=== PATIENT | male | born 1950 | race Caucasian/White ===

== ENCOUNTER 2021-07-12 11:54 | Inpatient (IN) ==
[2021-07-12 12:54] LABS: Basophils # 0.1 K/mcL (0.0-0.2); Basophils % 0.8 %; Eosinophils # 0.3 K/mcL (0.0-0.6); Eosinophils % 2.7 %; Hematocrit 43.2 % (37.5-50.1); Hemoglobin 14.9 g/dL (12.9-16.9); Immature Granulocytes % 0.2 % (0-4); Lymphocytes # 1.4 K/mcL (0.6-4.6); Lymphocytes % 15.4 %; Mean Corpuscular HGB Conc 34.5 g/dL (31.6-35.5); Mean Corpuscular Hemoglobin 30.1 pg (28.0-33.3); Mean Corpuscular Volume 87.3 fL (83.0-100.0); Mean Platelet Volume 10.6 fL (9.4-12.4); Monocytes # 0.8 K/mcL (0.0-1.3); Neutrophils # 6.8 K/mcL (1.6-8.9); Platelet Count 214 K/mcL (140-400); Red Blood Count 4.95 M/mcL (4.19-5.50); Segmented Neutrophils % 72.9 %; White Blood Count 9.3 K/mcL (4.3-11.1)
[2021-07-12 13:16] LABS: BUN/Creatinine Ratio 22 (6-26); Blood Urea Nitrogen 21 mg/dL (8-23); Calcium 9.5 mg/dL (8.6-10.3); Carbon Dioxide 27 mEq/L (23-29); Chloride 103 mEq/L (98-107); Glucose 142 mg/dL (70-105); Osmolality,Calculated 293 (280-300); Potassium 3.9 mEq/L (3.5-5.1); Sodium 139 mEq/L (136-145); eGFR For African Americans > 60 (> 60); eGFR For Non-African Americans > 60 (> 60)
[2021-07-12 13:17] LABS: Troponin I < 0.03 ng/mL (< 0.04)
[2021-07-12 14:09] LABS: INR 1.1; Prothrombin Time 12.3 Seconds (9.4-12.1)
[2021-07-12 14:12] LABS: Activated Partial Thrombo Time 32.1 Seconds (26.0-36.0); Alanine Aminotransferase 22 Units/L (7-52); Albumin 3.9 g/dL (3.5-5.7); Albumin/Globulin Ratio 1.3 (1.1-2.2); Alkaline Phosphatase 60 Units/L (34-104); Aspartate Amino Transferase 20 Units/L (13-39); Bilirubin,Direct 0.1 mg/dL (0.0-0.2); Bilirubin,Indirect 0.4 mg/dL (0.0-1.0); Bilirubin,Total 0.5 mg/dL (0.3-1.0); Lipase 16 Units/L (11-82); Total Protein 6.9 g/dL (6.4-8.9)
[2021-07-12 16:00] LABS: Influenza A PCR Negative (Negative); Influenza B PCR Negative (Negative); Resp. Syncytial Virus PCR Negative (Negative)
[2021-07-12 16:01] LABS: SARS-CoV-2 by PCR (In House) Negative (Negative)
[2021-07-12] MEDS ORDERED: Ondansetron 4 MG/2 ML VIAL IVP PRN (16:43)
[2021-07-12] MEDS ORDERED: Naloxone 0.4 MG/ML INJ IVP PRN (16:43)
[2021-07-12] MEDS ORDERED: *HR* Dextrose 50 % in Water (Syg) 50 ML SYRINGE IVP PRN (16:44)
[2021-07-12] MEDS ORDERED: D5% in Water 1,000 ML IVC PRN (16:44)
[2021-07-12] MEDS ORDERED: Dextrose Gel 15 GM/37.5 ML TUBE PO PRN ×2 (16:44)
[2021-07-12] MEDS ORDERED: Nitroglycerin 0.4 MG TAB.SUBL SL PRN (16:45)
[2021-07-12] MEDS: *HR* Heparin 5,000 UNIT/ML VIAL SQ SCH (18:41)
[2021-07-12 19:48] LABS: Chol/HDL Ratio 2.7 (0-4.9)
[2021-07-12] MEDS: atenoloL 50 MG TABLET PO SCH (21:16)
[2021-07-12] MEDS: Insulin DETEMIR 100 UNIT/ML X5UNITS SUBQ SCH (21:26)
[2021-07-13] MEDS: *HR* Heparin 5,000 UNIT/ML VIAL SQ SCH (05:29)
[2021-07-13] MEDS ORDERED: Regadenoson 0.4 MG/5 ML SYRINGE IVP ONE (05:58)
[2021-07-13] MEDS ORDERED: Furosemide 20 MG TABLET PO PRN (07:22)
[2021-07-13] MEDS: Insulin LISPRO 300 UNITS/3 ML VIAL SUBQ SCH ×3 (08:31→18:08)
[2021-07-13] MEDS: Lisinopril-HCTZ 20-12.5mg TABLET PO SCH (08:38)
[2021-07-13] MEDS: Cholecalciferol (D-3) 1,000 UNIT (25MCG) TABLET PO SCH (08:38)
[2021-07-13] MEDS: atenoloL 50 MG TABLET PO SCH (08:38)
[2021-07-13] MEDS ORDERED: 0.9 % Sodium Chloride 1,000 ML IVC SCH (10:00)
[2021-07-13] MEDS ORDERED: Perflutren Lipid Microsphere 1.3 ML in 0.9 % Sodium Chloride 8.7 ML IVP PRN (10:07)
[2021-07-13] MEDS ORDERED: *HR* FentaNYL (PF) 100 MCG/2 ML VIAL ONE (15:02)
[2021-07-13] MEDS ORDERED: 0.9 % Sodium Chloride 2,000 ML ONE (15:02)
[2021-07-13] MEDS ORDERED: Heparin 1,000 UNITS/500 mL 500 ML ONE (15:02)
[2021-07-13] MEDS ORDERED: *HR* Midazolam HCl 2 MG/2 ML VIAL ONE (15:02)
[2021-07-13] MEDS ORDERED: ISOVUE-370 200 ML INFUS..BTL ONE (15:02)
[2021-07-13] MEDS ORDERED: *HR* Heparin 10,000 UNIT/10 ML VIAL ONE (15:02)
[2021-07-13] MEDS ORDERED: Nitroglycerin 1,000 MCG/5 ML VIAL IV ONE (15:03)
[2021-07-13] MEDS: 0.9 % Sodium Chloride 1,000 ML IVC SCH ×2 (17:04→23:54)
[2021-07-13 18:06] LABS: Estimated Average Glucose 229 mg/dl; Hemoglobin A1C 9.6 %
[2021-07-13] MEDS: Chlorhexidine Rinse 15 ML MOUTHWASH MM SCH (20:55)
[2021-07-13] MEDS: Insulin DETEMIR 100 UNIT/ML X5UNITS SUBQ SCH (20:56)
[2021-07-13] MEDS: Aspirin Enteric Coated 81 MG Tablet PO SCH (20:56)
[2021-07-13] MEDS ORDERED: ATENOLOL 100 MG PO SCH (21:00)
[2021-07-14] MEDS: CeFAZolin Syr 2,000MG/20 ML 2,000 MG/20 ML SYRINGE IVPB ONE ×2 (05:16→11:30)
[2021-07-14] MEDS ORDERED: Papaverine 60 MG/2 ML VIAL IVP ONE (06:46)
[2021-07-14] MEDS ORDERED: NiCARdipine 2.5 MG/10 ML Syringe IVPB ONE (06:49)
[2021-07-14] MEDS ORDERED: *HR* Vasopressin 20 UNIT/ML VIAL ONE (06:49)
[2021-07-14] MEDS: Insulin LISPRO 300 UNITS/3 ML VIAL SUBQ SCH (07:35)
[2021-07-14] MEDS: Chlorhexidine Rinse 15 ML MOUTHWASH MM SCH ×2 (07:40→20:00)
[2021-07-14] MEDS: atenoloL 50 MG TABLET PO SCH (07:40)
[2021-07-14] MEDS: Cholecalciferol (D-3) 1,000 UNIT (25MCG) TABLET PO SCH (07:40)
[2021-07-14] MEDS: Lisinopril-HCTZ 20-12.5mg TABLET PO SCH (07:40)
[2021-07-14] MEDS ORDERED: Norepinephrine 4 MG in 0.9 % Sodium Chloride 250 ML IVC PRN (07:45)
[2021-07-14] MEDS ORDERED: Heparin 15,000 UNIT in 0.9 % Sodium Chloride 500 ML IV ONE (07:45)
[2021-07-14] MEDS ORDERED: Dextrose 50 % in Water (Vial) 30 ML, Sodium Bicarbonate 20 MEQ, Potassium Chloride 15 M... TH ONE (07:45)
[2021-07-14] MEDS ORDERED: Dextrose 50 % in Water (Vial) 30 ML, Sodium Bicarbonate 20 MEQ, Lidocaine 1% 5 ML, Insu... TH ONE ×3 (07:45)
[2021-07-14] MEDS ORDERED: *HR* FentaNYL (PF) 1,000 MCG/20 ML VIAL ONE ×2 (10:11)
[2021-07-14] MEDS ORDERED: *HR* Propofol 200 MG/20 ML VIAL IVP ONE (10:11)
[2021-07-14] MEDS ORDERED: *HR* Midazolam HCl 5 MG/5 ML VIAL IVP ONE (10:11)
[2021-07-14] MEDS ORDERED: *HR* Rocuronium Bromide 50 MG/5 ML VIAL ONE ×2 (10:12→12:18)
[2021-07-14] MEDS ORDERED: *HR* Magnesium Sulfate 1 GM/2 ML VIAL ONE (10:13)
[2021-07-14] MEDS ORDERED: Lidocaine 2% Syringe 100 MG/5 ML ONE (10:13)
[2021-07-14] MEDS ORDERED: Famotidine 20 MG/2 ML VIAL ONE (10:13)
[2021-07-14] MEDS ORDERED: Tranexamic Acid 1,000 MG/10 ML VIAL ONE (10:13)
[2021-07-14 11:32] LABS: ABG Base Excess -2 mEq/L (-2 to 3); ABG Chloride 104 mEq/L (98-107); ABG Glucose 160 mg/dL (60-95); ABG HCO3 23 mEq/L (21-27); ABG Ionized Calcium 1.21 mmol/L (1.15-1.35); ABG Oxygen Saturation 100 % (95-98); ABG PCO2 39 mmHg (35-45); ABG PH 7.37 pH Units (7.32-7.45); ABG PO2 420 mmHg (85-104); ABG TCO2 24 mEq/L (20-26)
[2021-07-14 12:41] LABS: ABG Base Excess 1 mEq/L (-2 to 3); ABG Chloride 106 mEq/L (98-107); ABG Glucose 151 mg/dL (60-95); ABG HCO3 24 mEq/L (21-27); ABG Ionized Calcium 1.14 mmol/L (1.15-1.35); ABG Oxygen Saturation 100 % (95-98); ABG PCO2 34 mmHg (35-45); ABG PH 7.46 pH Units (7.32-7.45); ABG PO2 254 mmHg (85-104); ABG TCO2 25 mEq/L (20-26)
[2021-07-14 13:22] LABS: ABG Base Excess 3 mEq/L (-2 to 3); ABG Chloride 99 mEq/L (98-107); ABG Glucose 208 mg/dL (60-95); ABG HCO3 26 mEq/L (21-27); ABG Ionized Calcium 0.99 mmol/L (1.15-1.35); ABG Oxygen Saturation 100 % (95-98); ABG PCO2 33 mmHg (35-45); ABG PH 7.51 pH Units (7.32-7.45); ABG PO2 630 mmHg (85-104); ABG TCO2 27 mEq/L (20-26)
[2021-07-14 13:43] LABS: ABG Base Excess 4 mEq/L (-2 to 3); ABG Chloride 99 mEq/L (98-107); ABG Glucose 210 mg/dL (60-95); ABG HCO3 27 mEq/L (21-27); ABG Ionized Calcium 1.04 mmol/L (1.15-1.35); ABG Oxygen Saturation 100 % (95-98); ABG PCO2 35 mmHg (35-45); ABG PO2 625 mmHg (85-104); ABG TCO2 29 mEq/L (20-26)
[2021-07-14] MEDS ORDERED: Calcium Gluconate 1,000 MG/10 ML VIAL ONE (13:46)
[2021-07-14] MEDS ORDERED: Protamine Sulfate 250 MG/25 ML VIAL IVP ONE (13:46)
[2021-07-14] MEDS ORDERED: Albumin Human 5% 12.5 GM/250 ML IV.SOLN ONE (13:46)
[2021-07-14 14:11] LABS: ABG Base Excess 4 mEq/L (-2 to 3); ABG Chloride 101 mEq/L (98-107); ABG Glucose 166 mg/dL (60-95); ABG HCO3 27 mEq/L (21-27); ABG Ionized Calcium 1.05 mmol/L (1.15-1.35); ABG Oxygen Saturation 100 % (95-98); ABG PCO2 37 mmHg (35-45); ABG PH 7.48 pH Units (7.32-7.45); ABG PO2 583 mmHg (85-104); ABG TCO2 28 mEq/L (20-26)
[2021-07-14 14:42] LABS: ABG Base Excess -2 mEq/L (-2 to 3); ABG Chloride 107 mEq/L (98-107); ABG Glucose 123 mg/dL (60-95); ABG HCO3 21 mEq/L (21-27); ABG Ionized Calcium 1.04 mmol/L (1.15-1.35); ABG Oxygen Saturation 97 % (95-98); ABG PCO2 30 mmHg (35-45); ABG PH 7.46 pH Units (7.32-7.45); ABG PO2 84 mmHg (85-104); ABG TCO2 22 mEq/L (20-26)
[2021-07-14] MEDS ORDERED: Albumin Human 5% 50.0 GM/1,000 ML IV.SOLN ONE (14:58)
[2021-07-14] MEDS ORDERED: *HR* Dextrose 50 % in Water (Syg) 50 ML SYRINGE IVP PRN (15:00)
[2021-07-14] MEDS ORDERED: Sennosides 8.6 MG TABLET PO PRN (15:00)
[2021-07-14] MEDS ORDERED: Insulin Regular, Human 100 UNIT/ML IV PRN (15:00)
[2021-07-14] MEDS ORDERED: *HR* Promethazine 25 MG/ML VIAL IM PRN (15:00)
[2021-07-14] MEDS ORDERED: Naloxone 0.4 MG/ML INJ IVP PRN (15:00)
[2021-07-14] MEDS ORDERED: Potassium Chloride 40 MEQ/200 ML BAG IVPB PRN (15:00)
[2021-07-14] MEDS: Norepinephrine 4 MG/254 ML IV.SOLN IVC SCH ×2 (15:15→19:27)
[2021-07-14] MEDS: Albumin Human 5% 12.5 GM/250 ML IV.SOLN IVPB PRN (15:25)
[2021-07-14 15:38] LABS: ABG Base Excess 0 mEq/L (-2 to 3); ABG HCO3 25 mEq/L (21-27); ABG Oxygen Saturation 99 % (95-98); ABG PCO2 41 mmHg (35-45); ABG PO2 140 mmHg (85-104); ABG TCO2 26 mEq/L (20-26); Blood Gas Modality ASSIST CONTROL; Blood Gas VT 500 cc
[2021-07-14 15:48] LABS: Basophils % 0.3 %; Immature Granulocytes % 1.1 % (0-4)
[2021-07-14 15:50] LABS: Basophils # 0.1 K/mcL (0.0-0.2); Eosinophils # 0.2 K/mcL (0.0-0.6); Eosinophils % 0.7 %; Hematocrit 35.8 % (37.5-50.1); Hemoglobin 12.4 g/dL (12.9-16.9); Lymphocytes # 1.4 K/mcL (0.6-4.6); Lymphocytes % 5.3 %; Mean Corpuscular HGB Conc 34.6 g/dL (31.6-35.5); Mean Corpuscular Hemoglobin 30.4 pg (28.0-33.3); Mean Corpuscular Volume 87.7 fL (83.0-100.0); Mean Platelet Volume 10.5 fL (9.4-12.4); Monocytes # 1.5 K/mcL (0.0-1.3); Monocytes % 5.7 %; Neutrophils # 22.6 K/mcL (1.6-8.9); Platelet Count 170 K/mcL (140-400); Red Blood Count 4.08 M/mcL (4.19-5.50); Segmented Neutrophils % 86.9 %
[2021-07-14 15:56] LABS: INR 1.5; Prothrombin Time 16.5 Seconds (9.4-12.1)
[2021-07-14 15:58] LABS: Activated Partial Thrombo Time 27.5 Seconds (26.0-36.0)
[2021-07-14 16:03] LABS: BUN/Creatinine Ratio 15 (6-26); Blood Urea Nitrogen 13 mg/dL (8-23); Calcium 8.3 mg/dL (8.6-10.3); Carbon Dioxide 27 mEq/L (23-29); Chloride 106 mEq/L (98-107); Glucose 153 mg/dL (70-105); Magnesium 2.6 mg/dL (1.6-2.6); Osmolality,Calculated 289 (280-300); Potassium 3.8 mEq/L (3.5-5.1); Sodium 138 mEq/L (136-145); eGFR For African Americans > 60 (> 60); eGFR For Non-African Americans > 60 (> 60)
[2021-07-14] MEDS: *HR* FentaNYL (PF) 100 MCG/2 ML VIAL IVP PRN ×2 (16:15→20:12)
[2021-07-14 16:17] LABS: Platelet Estimate Normal (Normal)
[2021-07-14] MEDS: 0.9 % Sodium Chloride 1,000 ML IVC SCH (16:38)
[2021-07-14] MEDS: *HR* OxyCODONE/APAP 5/325 TABLET PO PRN ×2 (17:35→21:20)
[2021-07-14 18:07] LABS: Bilirubin,Urine Negative (Negative); Blood,Urine Negative (Negative); Clarity,Urine Clear (Clear); Color,Urine Light-Yellow (Yellow); Glucose,Urine (UA) Normal (Normal); Ketones,Urine Negative (Negative); Leukocyte Esterase,Urine Negative (Negative); Nitrite,Urine Negative (Negative); PH,Urine 6.5 pH Units (5.0-8.0); Protein,Urine Negative (Neg-Trace); Specific Gravity,Urine 1.024 (1.010-1.025); Urobilinogen,Urine Normal (Normal)
[2021-07-14] MEDS: CeFAZolin 2 GM/120 ML BAG IVPB SCH (19:25)
[2021-07-14] MEDS: niCARdipine 20 MG/200 ML MLS IVC SCH (19:25)
[2021-07-14] MEDS: Aspirin Enteric Coated 81 MG Tablet PO SCH (19:26)
[2021-07-14 19:32] LABS: ABG Base Excess -1 mEq/L (-2 to 3); ABG HCO3 25 mEq/L (21-27); ABG Oxygen Saturation 98 % (95-98); ABG PCO2 42 mmHg (35-45); ABG PH 7.38 pH Units (7.32-7.45); ABG PO2 106 mmHg (85-104); ABG TCO2 26 mEq/L (20-26); Blood Gas Modality CPAP/PS; Blood Gas Pressure Support 5 cm H2O
[2021-07-14 21:12] LABS: ABG Base Excess -2 mEq/L (-2 to 3); ABG HCO3 23 mEq/L (21-27); ABG Oxygen Saturation 96 % (95-98); ABG PCO2 40 mmHg (35-45); ABG PH 7.37 pH Units (7.32-7.45); ABG PO2 81 mmHg (85-104); ABG TCO2 25 mEq/L (20-26)
[2021-07-15] MEDS: *HR* FentaNYL (PF) 100 MCG/2 ML VIAL IVP PRN ×2 (00:02→04:27)
[2021-07-15] MEDS: niCARdipine 20 MG/200 ML MLS IVC SCH ×3 (01:01→19:18)
[2021-07-15] MEDS: *HR* OxyCODONE/APAP 5/325 TABLET PO PRN ×5 (01:14→20:54)
[2021-07-15] MEDS: CeFAZolin 2 GM/120 ML BAG IVPB SCH (02:00)
[2021-07-15 03:34] LABS: Basophils % 0.1 %; Hematocrit 32.8 % (37.5-50.1); Hemoglobin 11.3 g/dL (12.9-16.9); Immature Granulocytes % 0.4 % (0-4); Lymphocytes % 4.7 %; Mean Corpuscular HGB Conc 34.5 g/dL (31.6-35.5); Mean Corpuscular Hemoglobin 30.1 pg (28.0-33.3); Mean Corpuscular Volume 87.5 fL (83.0-100.0); Mean Platelet Volume 10.8 fL (9.4-12.4); Monocytes # 1.7 K/mcL (0.0-1.3); Monocytes % 8.1 %; Neutrophils # 17.6 K/mcL (1.6-8.9); Platelet Count 147 K/mcL (140-400); Red Blood Count 3.75 M/mcL (4.19-5.50); Red Cell Distribution Width 12.4 % (11.5-14.5); Segmented Neutrophils % 86.7 %; White Blood Count 20.3 K/mcL (4.3-11.1)
[2021-07-15 03:44] LABS: BUN/Creatinine Ratio 24 (6-26); Blood Urea Nitrogen 19 mg/dL (8-23); Calcium 8.3 mg/dL (8.6-10.3); Carbon Dioxide 23 mEq/L (23-29); Chloride 107 mEq/L (98-107); Glucose 166 mg/dL (70-105); Osmolality,Calculated 292 (280-300); Potassium 3.9 mEq/L (3.5-5.1); Sodium 138 mEq/L (136-145); eGFR For African Americans > 60 (> 60); eGFR For Non-African Americans > 60 (> 60)
[2021-07-15] MEDS: 0.9 % Sodium Chloride 1,000 ML IVC SCH (05:03)
[2021-07-15] MEDS: Norepinephrine 4 MG/254 ML IV.SOLN IVC SCH ×2 (05:04→19:18)
[2021-07-15] MEDS: Albumin Human 5% 12.5 GM/250 ML IV.SOLN IVPB PRN (06:42)
[2021-07-15] MEDS: Ondansetron 4 MG/2 ML VIAL IVP PRN ×2 (08:15→16:53)
[2021-07-15] MEDS: Cholecalciferol (D-3) 1,000 UNIT (25MCG) TABLET PO SCH (09:36)
[2021-07-15] MEDS: Pantoprazole 40 MG VIAL IVP SCH (09:42)
[2021-07-15] MEDS: Chlorhexidine Rinse 15 ML MOUTHWASH MM SCH ×2 (09:42→20:07)
[2021-07-15] MEDS ORDERED: Tranexamic Acid 1,000 MG/10 ML VIAL IR ONE (11:04)
[2021-07-15] MEDS ORDERED: *HR* Phenylephrine 10 MG/ML VIAL IVC ONE (11:04)
[2021-07-15] MEDS ORDERED: Lidocaine 2% Syringe 100 MG/5 ML IVP ONE (11:04)
[2021-07-15] MEDS ORDERED: Mannitol 25% vial 12.5 GM/50 ML VIAL IVPB ONE (11:04)
[2021-07-15] MEDS ORDERED: *HR* Magnesium Sulfate 2 GM/50 ML PIGGYBACK IVPB ONE (11:04)
[2021-07-15] MEDS ORDERED: *HR* Heparin 10,000 UNIT/10 ML VIAL IR ONE (11:04)
[2021-07-15] MEDS ORDERED: Albumin Human 25% 25 GM/100 ML IV.SOLN IVPB ONE (11:04)
[2021-07-15] MEDS ORDERED: Dextrose Gel 15 GM/37.5 ML TUBE PO PRN ×2 (14:39)
[2021-07-15] MEDS ORDERED: *HR* Dextrose 50 % in Water (Syg) 50 ML SYRINGE IVP PRN (14:39)
[2021-07-15] MEDS ORDERED: D5% in Water 1,000 ML IVC PRN (14:39)
[2021-07-15] MEDS: Aspirin Enteric Coated 81 MG Tablet PO SCH (20:09)
[2021-07-15] MEDS ORDERED: Insulin LISPRO 300 UNITS/3 ML VIAL SUBQ SCH (21:00)
[2021-07-15] MEDS: Acetaminophen 325 MG TABLET PO PRN (22:44)
[2021-07-16] MEDS: Norepinephrine 4 MG/254 ML IV.SOLN IVC SCH ×2 (00:15→07:49)
[2021-07-16] MEDS: niCARdipine 20 MG/200 ML MLS IVC SCH ×2 (00:16→10:14)
[2021-07-16] MEDS: *HR* OxyCODONE/APAP 5/325 TABLET PO PRN ×2 (00:30→04:10)
[2021-07-16 04:34] LABS: Basophils % 0.2 %; Eosinophils # 0.1 K/mcL (0.0-0.6); Eosinophils % 0.3 %; Hematocrit 31.2 % (37.5-50.1); Hemoglobin 10.4 g/dL (12.9-16.9); Immature Granulocytes % 0.5 % (0-4); Lymphocytes # 1.6 K/mcL (0.6-4.6); Lymphocytes % 8.9 %; Mean Corpuscular HGB Conc 33.3 g/dL (31.6-35.5); Mean Corpuscular Hemoglobin 30.1 pg (28.0-33.3); Mean Corpuscular Volume 90.2 fL (83.0-100.0); Mean Platelet Volume 11.2 fL (9.4-12.4); Monocytes # 2.5 K/mcL (0.0-1.3); Monocytes % 13.6 %; Neutrophils # 14.1 K/mcL (1.6-8.9); Platelet Count 155 K/mcL (140-400); Red Blood Count 3.46 M/mcL (4.19-5.50); Red Cell Distribution Width 12.9 % (11.5-14.5); Segmented Neutrophils % 76.5 %; White Blood Count 18.4 K/mcL (4.3-11.1)
[2021-07-16 04:49] LABS: BUN/Creatinine Ratio 24 (6-26); Blood Urea Nitrogen 28 mg/dL (8-23); Calcium 8.4 mg/dL (8.6-10.3); Carbon Dioxide 25 mEq/L (23-29); Chloride 101 mEq/L (98-107); Glucose 314 mg/dL (70-105); Osmolality,Calculated 295 (280-300); Potassium 4.2 mEq/L (3.5-5.1); Sodium 134 mEq/L (136-145); eGFR For African Americans > 60 (> 60); eGFR For Non-African Americans > 60 (> 60)
[2021-07-16] MEDS: Acetaminophen 325 MG TABLET PO PRN (05:01)
[2021-07-16] MEDS ORDERED: *HR* OxyCODONE/APAP 10/325 TABLET PO PRN (06:43)
[2021-07-16] MEDS: Pantoprazole 40 MG VIAL IVP SCH (07:47)
[2021-07-16] MEDS: Cholecalciferol (D-3) 1,000 UNIT (25MCG) TABLET PO SCH (07:47)
[2021-07-16] MEDS: Chlorhexidine Rinse 15 ML MOUTHWASH MM SCH ×2 (07:47→20:03)
[2021-07-16] MEDS ORDERED: Insulin LISPRO 300 UNITS/3 ML VIAL SUBQ SCH (08:00)
[2021-07-16] MEDS ORDERED: *HR* HYDROcodone/Acet 5/325 mg TABLET PO PRN ×2 (09:49→10:50)
[2021-07-16] MEDS ORDERED: atenoloL 50 MG TABLET PO SCH ×2 (10:00→10:15)
[2021-07-16] MEDS: 0.9 % Sodium Chloride 1,000 ML IVC SCH (10:11)
[2021-07-16] MEDS: Insulin LISPRO 300 UNITS/3 ML VIAL SUBQ SCH ×4 (10:11→20:04)
[2021-07-16] MEDS ORDERED: D5% in Water 1,000 ML IVC PRN (10:50)
[2021-07-16] MEDS ORDERED: *HR* Promethazine 25 MG/ML VIAL IM PRN (10:50)
[2021-07-16] MEDS ORDERED: *HR* Dextrose 50 % in Water (Syg) 50 ML SYRINGE IVP PRN (10:50)
[2021-07-16] MEDS ORDERED: Naloxone 0.4 MG/ML INJ IVP PRN (10:50)
[2021-07-16] MEDS ORDERED: Insulin Regular, Human 100 UNIT/ML IV PRN (10:50)
[2021-07-16] MEDS ORDERED: Ondansetron 4 MG/2 ML VIAL IVP PRN (10:50)
[2021-07-16] MEDS ORDERED: Nitroglycerin 0.4 MG TAB.SUBL SL PRN (10:50)
[2021-07-16] MEDS ORDERED: Dextrose Gel 15 GM/37.5 ML TUBE PO PRN ×2 (10:50)
[2021-07-16] MEDS ORDERED: Acetaminophen 325 MG TABLET PO PRN (10:50)
[2021-07-16] MEDS ORDERED: Sennosides 8.6 MG TABLET PO PRN (10:50)
[2021-07-16] MEDS ORDERED: Ketorolac 15 MG/ML VIAL IVP SCH ×2 (12:00)
[2021-07-16] MEDS: *HR* Heparin 5,000 UNIT/ML VIAL SQ SCH (17:45)
[2021-07-16] MEDS: Ketorolac 30 MG/ML VIAL IVP SCH ×2 (17:49→23:12)
[2021-07-16] MEDS: Aspirin Enteric Coated 81 MG Tablet PO SCH (20:03)
[2021-07-16] MEDS: Insulin DETEMIR 100 UNIT/ML X5UNITS SUBQ SCH (20:04)
[2021-07-17] MEDS: *HR* Heparin 5,000 UNIT/ML VIAL SQ SCH ×2 (05:17→17:18)
[2021-07-17] MEDS: Ketorolac 30 MG/ML VIAL IVP SCH ×4 (05:17→23:25)
[2021-07-17] MEDS: atenoloL 50 MG TABLET PO SCH (07:37)
[2021-07-17] MEDS: Chlorhexidine Rinse 15 ML MOUTHWASH MM SCH ×2 (07:37→20:35)
[2021-07-17] MEDS: Cholecalciferol (D-3) 1,000 UNIT (25MCG) TABLET PO SCH (07:37)
[2021-07-17] MEDS: Pantoprazole 40 MG VIAL IVP SCH (07:37)
[2021-07-17] MEDS: Insulin LISPRO 300 UNITS/3 ML VIAL SUBQ SCH ×4 (07:38→20:36)
[2021-07-17 07:57] LABS: Basophils % 0.4 %; Eosinophils # 0.2 K/mcL (0.0-0.6); Eosinophils % 1.8 %; Hematocrit 27.8 % (37.5-50.1); Hemoglobin 9.2 g/dL (12.9-16.9); Immature Granulocytes % 0.4 % (0-4); Lymphocytes # 1.1 K/mcL (0.6-4.6); Lymphocytes % 10.1 %; Mean Corpuscular HGB Conc 33.1 g/dL (31.6-35.5); Mean Corpuscular Hemoglobin 29.9 pg (28.0-33.3); Mean Corpuscular Volume 90.3 fL (83.0-100.0); Mean Platelet Volume 11.2 fL (9.4-12.4); Monocytes # 1.2 K/mcL (0.0-1.3); Monocytes % 10.9 %; Neutrophils # 8.4 K/mcL (1.6-8.9); Platelet Count 149 K/mcL (140-400); Red Blood Count 3.08 M/mcL (4.19-5.50); Red Cell Distribution Width 12.8 % (11.5-14.5); Segmented Neutrophils % 76.4 %
[2021-07-17 07:58] LABS: BUN/Creatinine Ratio 31 (6-26); Blood Urea Nitrogen 39 mg/dL (8-23); Calcium 8.6 mg/dL (8.6-10.3); Carbon Dioxide 26 mEq/L (23-29); Chloride 99 mEq/L (98-107); Glucose 299 mg/dL (70-105); Osmolality,Calculated 295 (280-300); Sodium 132 mEq/L (136-145); eGFR For African Americans > 60 (> 60); eGFR For Non-African Americans 57 (> 60)
[2021-07-17] MEDS: Aspirin Enteric Coated 81 MG Tablet PO SCH (20:36)
[2021-07-17] MEDS: Insulin DETEMIR 100 UNIT/ML X5UNITS SUBQ SCH (20:36)
[2021-07-18 01:14] LABS: Basophils % 0.5 %; Eosinophils # 0.3 K/mcL (0.0-0.6); Eosinophils % 3.1 %; Hematocrit 27.8 % (37.5-50.1); Hemoglobin 9.1 g/dL (12.9-16.9); Immature Granulocytes % 0.5 % (0-4); Lymphocytes # 1.4 K/mcL (0.6-4.6); Lymphocytes % 16.8 %; Mean Corpuscular HGB Conc 32.7 g/dL (31.6-35.5); Mean Corpuscular Volume 88.5 fL (83.0-100.0); Monocytes # 0.9 K/mcL (0.0-1.3); Monocytes % 11.2 %; Neutrophils # 5.6 K/mcL (1.6-8.9); Platelet Count 174 K/mcL (140-400); Red Blood Count 3.14 M/mcL (4.19-5.50); Red Cell Distribution Width 12.7 % (11.5-14.5); Segmented Neutrophils % 67.9 %; White Blood Count 8.2 K/mcL (4.3-11.1)
[2021-07-18 01:23] LABS: BUN/Creatinine Ratio 29 (6-26); Blood Urea Nitrogen 34 mg/dL (8-23); Calcium 8.5 mg/dL (8.6-10.3); Carbon Dioxide 26 mEq/L (23-29); Chloride 101 mEq/L (98-107); Glucose 330 mg/dL (70-105); Osmolality,Calculated 298 (280-300); Potassium 3.7 mEq/L (3.5-5.1); Sodium 134 mEq/L (136-145); eGFR For African Americans > 60 (> 60); eGFR For Non-African Americans > 60 (> 60)
[2021-07-18] MEDS: Ketorolac 30 MG/ML VIAL IVP SCH ×3 (05:51→16:56)
[2021-07-18] MEDS: *HR* Heparin 5,000 UNIT/ML VIAL SQ SCH ×2 (05:51→16:56)
[2021-07-18] MEDS: Chlorhexidine Rinse 15 ML MOUTHWASH MM SCH ×2 (07:33→21:01)
[2021-07-18] MEDS: Insulin LISPRO 300 UNITS/3 ML VIAL SUBQ SCH ×4 (07:34→21:01)
[2021-07-18] MEDS: Pantoprazole 40 MG VIAL IVP SCH (07:36)
[2021-07-18] MEDS: atenoloL 50 MG TABLET PO SCH (07:36)
[2021-07-18] MEDS: Cholecalciferol (D-3) 1,000 UNIT (25MCG) TABLET PO SCH (07:36)
[2021-07-18] MEDS: Aspirin Enteric Coated 81 MG Tablet PO SCH (21:00)
[2021-07-18] MEDS: Insulin DETEMIR 100 UNIT/ML X5UNITS SUBQ SCH (21:02)
[2021-07-19] MEDS: Ketorolac 30 MG/ML VIAL IVP SCH ×2 (01:11→06:10)
[2021-07-19] MEDS: *HR* Heparin 5,000 UNIT/ML VIAL SQ SCH (06:09)
[2021-07-19 06:28] VITALS: BP 176/80; PULSE 75; O2SAT 98
[2021-07-19 07:23] VITALS: TEMP 98.8
[2021-07-19] MEDS: Insulin LISPRO 300 UNITS/3 ML VIAL SUBQ SCH (08:25)
[2021-07-19] MEDS: Chlorhexidine Rinse 15 ML MOUTHWASH MM SCH (08:25)
[2021-07-19] MEDS: Cholecalciferol (D-3) 1,000 UNIT (25MCG) TABLET PO SCH (08:25)
[2021-07-19] MEDS: atenoloL 50 MG TABLET PO SCH (08:25)
== END 2021-07-19 10:56 | disposition home or self-care (01) | DRG 234 ==
LOC: 3ANU 11:54 → EMEROOARM 11:54 → SUATTDRO 16:30 → 3ANU 17:30 → ICNU 07-14 11:58 → 2NNU 07-16 14:23
PROVIDERS: ADMIT Internal Medicine; ATTEND Internal Medicine